=== PATIENT | female | born 1995 ===

== ENCOUNTER 2016-11-10 19:38 | Emergency (ER) | payer BC ==
--- NOTE | 2016-11-10 20:20 | UC ---
Throat Pain/Nasal Raymundo HPI - HPI Summary HPI Summary: sore throat x 2 days bilateral ear pain no fever, no chills, + nasal congestion, cough - History of Current Complaint Chief Complaint: UCRespiratory Stated Complaint: SORE THROAT,EARS Time Seen by Provider: 11/10/16 20:15 Hx Obtained From: Patient Hx Last Menstrual Period: 10/11/16 ?: No Onset/Duration: Gradual Onset, Lasting Days - 2, Still Present Severity: Moderate Cough: Nonproductive Associated Signs & Symptoms: Positive: Nasal Discharge. Negative: Dysphagia, FB Sensation, Drooling, Wheezing, Hoarseness, Sinus Discomfort, Fever, Vomiting , Rash - Allergies/Home Medications Allergies/Adverse Reactions: Allergies Allergy/AdvReac Type Severity Reaction Status Date / Time No Known Allergies Allergy Verified 11/10/16 20:05 Home Medications: Home Medications Norgestimate-Ethinyl Estradiol [Sprintec 28 0.25-35 mg-Mcg] 1 tab PO DAILY 11/10 [History Confirmed 11/10/16] PMH/Surg Hx/FS Hx/Imm Hx Previously Healthy: Yes - Surgical History Surgical History: None - Family History Known Family History: Negative: Diabetes - Social History Alcohol Use: Occasionally Substance Use Type: None Smoking Status (MU): Never Smoked Tobacco - Immunization History Most Recent Influenza Vaccination: no Review of Systems Constitutional: Negative Skin: Negative Eyes: Negative ENT: Sore Throat, Ear Ache, Nasal Discharge Respiratory: Cough Cardiovascular: Negative Gastrointestinal: Negative Is Patient Immunocompromised?: No All Other Systems Reviewed And Are Negative: Yes Physical Exam Triage Information Reviewed: Yes Appearance: Well-Appearing, No Pain Distress, Well-Nourished Vital Signs: Initial Vital Signs Temp 98.8 F 11/10/16 20:01 Pulse 97 11/10/16 20:01 Resp 16 11/10/16 20:01 BP 111/53 11/10/16 20:01 Pulse Ox 99 11/10/16 20:01 Vital Signs Reviewed: Yes Eye Exam: Normal Eyes: Positive: Conjunctiva Clear ENT Exam: Normal ENT: Positive: Normal ENT inspection, Hearing grossly normal, Pharyngeal erythema, Nasal congestion, TMs normal. Negative: TM bulging, TM dull, TM red Neck exam: Normal Neck: Positive: Supple, Nontender, No Lymphadenopathy Respiratory: Positive: Chest non-tender, Lungs clear, Normal breath sounds, No respiratory distress Cardiovascular: Positive: RRR, No Murmur, Pulses Normal Skin Exam: Normal Throat Pain/Nasal Course/Dx - Differential Dx/Diagnosis Provider Diagnoses: strep pharyngitis Discharge - Discharge Plan Condition: Stable Disposition: HOME Prescriptions: Amoxicillin PO (*) [Amoxicillin 875 MG (*)] 875 mg PO BID #20 tab Patient Education Materials: Strep Throat (ED) Referrals: No Primary Care Phys,NOPCP [Primary Care Provider] - If Needed
[2016-11-10] MEDS ORDERED: Amoxicillin PO (*) 500 MG CAP PO ONE (20:35)
== END 2016-11-10 20:45 | disposition home or self-care (01) ==
LOC: UCCORT 19:38
DX: J02.0 Streptococcal pharyngitis (principal); H92.03 Otalgia, bilateral; R09.81 Nasal congestion
CPT/HCPCS: 87651; 99202; A9270-GY; G0463

== ENCOUNTER 2017-04-17 16:43 | Emergency (ER) | payer BC ==
--- NOTE | 2017-04-17 17:13 | UC ---
Head Injury HPI - HPI Summary HPI Summary: 21 yo female presents to [facility] for evaluation of a head injury she was hit in the face with a soccer ball she states she had brief LOC and her friends said it was a couple of minutes before she was acting normally had had a couple of drinks occurred about one hour ago mild dizziness mild nausea slight photo/phonophobia has no head ache her nose hurts no neck pain - History Of Current Complaint Chief Complaint: UCHeadInjury Stated Complaint: HEAD INJ Time Seen by Provider: 04/17/17 16:58 Hx Obtained From: Patient Hx Last Menstrual Period: 10/11/16 Onset/Duration: Sudden Onset Severity Currently: Moderate Pain Intensity: 6 - nose pain/no ALMEIDA Pain Scale Used: 0-10 Numeric Character: Throbbing Aggravating Factor(s): Other - touch Associated Signs And Symptoms: Positive: LOC (Time In Secs./Mins/Hrs) - brief, Nausea. Negative: Confusion, Memory Loss, Seizure, Epistaxis, Dental Malocclusion, Neck Pain, Vomiting Head: 1 - pain/tendrness - Allergies/Home Medications Allergies/Adverse Reactions: Allergies Allergy/AdvReac Type Severity Reaction Status Date / Time No Known Allergies Allergy Verified 11/10/16 20:05 PMH/Surg Hx/FS Hx/Imm Hx Previously Healthy: Yes - Surgical History Surgical History: None - Family History Known Family History: Positive: Hypertension Negative: Cardiac Disease, Diabetes - Social History Alcohol Use: Occasionally Substance Use Type: None Smoking Status (MU): Never Smoked Tobacco - Immunization History Most Recent Influenza Vaccination: no Review of Systems Constitutional: Negative Skin: Negative Eyes: Photophobia ENT: Other - bridge of nose hurts Respiratory: Negative Cardiovascular: Negative Gastrointestinal: Nausea Genitourinary: Negative Motor: Negative Neurovascular: Negative Musculoskeletal: Negative Neurological: Negative Psychological: Negative Is Patient Immunocompromised?: No All Other Systems Reviewed And Are Negative: Yes Physical Exam Triage Information Reviewed: Yes Appearance: Well-Appearing, No Pain Distress, Well-Nourished Vital Signs: Initial Vital Signs Temp 98.5 F 04/17/17 16:54 Pulse 84 04/17/17 16:54 Resp 12 03/03/18 16:54 BP 110/68 04/17/17 16:54 Pulse Ox 100 04/17/17 16:54 Vital Signs Reviewed: Yes Eyes: Positive: Conjunctiva Clear, Other: - EOMI/PERRL, fundi : benign ENT: Positive: Hearing grossly normal, Pharynx normal, TMs normal, Uvula midline , Other - no septal hematoma. Negative: Pharyngeal erythema, Nasal congestion, Nasal drainage, Tonsillar swelling, Tonsillar exudate, Trismus, Muffled voice Dental Exam: Normal Neck: Positive: Supple, Nontender, No Lymphadenopathy Respiratory: Positive: Lungs clear, Normal breath sounds, No respiratory distress, No accessory muscle use Cardiovascular: Positive: RRR Musculoskeletal: Positive: ROM Intact, No Edema Neurological: Positive: Alert, Muscle Tone Normal, Other: - GCS 15/15, non focal exam, normal memory and mentation Psychological Exam: Normal Skin Exam: Normal Diagnostics - Radiology No standard instances Xray Interpretation: No Acute Changes - no nasal bone fx Radiology Interpretation Completed By: Radiologist Head Injury Course/Dx - Differential Dx/Diagnosis Provider Diagnoses: concussion. nasal contusion Discharge - Discharge Plan Condition: Stable Disposition: HOME Patient Education Materials: Concussion (ED), Nasal Contusion (ED) Referrals: No Primary Care Phys,NOPCP [Primary Care Provider] - Additional Instructions: return for any problems or new symptoms rest (both physical and mental) avoid any activities in which you might hit your head no alcohol for a week tylenol or advil recheck in 5-7 days if not better
--- NOTE | 2017-04-17 17:32 | RAD ---
HISTORY: Facial trauma COMPARISONS: None VIEWS: 3, Vargas views of the face, bilateral coned down lateral views of the nasal bones FINDINGS: BONE DENSITY: Normal. BONES: There is no displaced fracture. The orbital rims are intact. JOINTS: There is no arthropathy. ALIGNMENT: There is no dislocation. SOFT TISSUES: Unremarkable. OTHER FINDINGS: None. IMPRESSION: NO ACUTE OSSEOUS INJURY. IF SYMPTOMS PERSIST, RECOMMEND REPEAT IMAGING.
== END 2017-04-17 17:44 | disposition home or self-care (01) ==
LOC: UCCORT 16:43
DX: S06.0X1A Concussion with loss of consciousness of 30 minutes or less, initial encounter (principal); S00.33XA Contusion of nose, initial encounter; W21.02XA Struck by soccer ball, initial encounter; Y93.9 Activity, unspecified; Y92.9 Unspecified place or not applicable
CPT/HCPCS: 70160; 99211; G0463